=== PATIENT | male | born 1950 ===

== ENCOUNTER 2023-11-04 14:50 | Outpatient (RCR) | payer MEDICARE, SELFPAY | END 2023-11-04 23:59 | disposition home or self-care (01) | LOC: CRHB 14:50 | PROVIDERS: ATTENDING PHYSICIAN Internal Medicine Cardiovascular Disease; PRIMARYCARE PHYSICIAN Internal Medicine | DX: Z95.5 Presence of coronary angioplasty implant and graft (principal); I25.10 Atherosclerotic heart disease of native coronary artery without angina pectoris | CPT/HCPCS: G0422; G0423 ==

== ENCOUNTER 2023-11-18 13:59 | Emergency (ER) | payer MEDICARE, SELFPAY ==
[2023-11-18 14:15] VITALS: BP 118/77
--- NOTE | 2023-11-18 14:22 | ED.GENMED ---
History of Present Illness
General
Chief Complaint: Nose Bleed
Source: patient
Exam Limitations: none
Time Seen by Provider: 11/18/23 14:18
Nursing documentation reviewed up to this point in time: agreed with
Travel History
Have you had any contact with someone who has COVID-19?: No
Do you have any symptoms of coronavirus? Fever > 100 degrees, chills, cough, shortness of breath, sore throat, loss of taste or smell, muscle aches, or headache?: No
History of Present Illness
History of Present Illness:
This is a 73 y/o male with a hx of CAD, hyperlipidemia, presenting emergency department today with concerns of a nosebleed. Patient states that his nosebleed started at 11:30 AM today. Patient reports that it started on the left nostril and then
he started bleeding from the right nostril. Patient reports that he is on Eliquis currently because he recently had a coronary artery stenting procedure done. Patient denies any chest pain, shortness of breath, lightheadedness, syncopal episodes.
Currently, his bleeding has slowed. Patient denies any trauma to the nose, patient states that this bleed started after he stuck a finger into his nose. Patient denies any URI symptoms, any sinus congestion.
Review of Systems
Review of Systems
All Other Systems: ROS reviewed and negative except as documented in HPI and ROS
Phy Exam
Physical Exam
Physical Exam:
General: Patient is well appearing and in no acute distress; non-toxic
Skin: Warm and dry, no rashes or lesions
Head: Normocephalic, atraumatic
Eyes: Sclera non-icteric. EOMs intact.
Mouth: No blood seen in the posterior oral pharynx.
Nose: Nares patent bilaterally. No blood clots visualized, no active sites of bleeding visualized, dried blood seen in nares bilaterally. No septal hematoma.
Cardiac: Regular rate.
Peripheral Vascular: No lower extremity swelling
Pulm: Normal respiratory effort
Abdomen: No abdominal tenderness
Musculoskeletal: No tenderness to palpation of the nasal bridge or nasal cartilage.
Neuro: CN II-XII intact, no focal neurologic deficits.
Psychiatric: Appropriate mood and affect.
Course
Orders/Labs/Results
Orders:
Orders
11/18/23 14:54
Oxymetazoline HCl [Afrin Nasal [place]] 30 sprays .ROUTE .[facility]
11/18/23 20:00
Oxymetazoline HCl [Afrin Nasal [place]] See Dose Instructions NASAL BID
Vital Signs
Initial and Last Documented VS:
Initial Vital Signs
Temp Pulse Resp BP Pulse Ox
98.2 F 62 18 118/77 99
11/18/23 14:15 11/18/23 14:15 11/18/23 14:15 11/18/23 14:15 11/18/23 14:15
Last Documented Vital Signs
Temp Pulse Resp BP Pulse Ox
98.2 F 62 18 118/77 99
11/18/23 14:15 11/18/23 14:15 11/18/23 14:15 11/18/23 14:15 11/18/23 14:15
MDM/Problems Addressed
Differential Diagnosis Includes:
anterior epistaxis, posterior epistaxis, sinusitis, nasal foreign body
MDM/Problems Addressed:
nose bleed
Chronic conditions affecting care:
eliquis use, coronary artery disease, hyperlipidemia
Acute Exacerbation and/or Progression of Chronic Illness:
eliquis use, coronary artery disease, hyperlipidemia
*Pulse Oximetry
Patient hypoxic: no
*Critical Care Note
Total Time (30-74mins, 75-104mins- exclusive of procedures): Not Applicable
Data Reviewed
Review of Other/Old Records Reveals: Records (No previous ER visits in [facility] to review) and Discharge Summary (No discharge summaries [facility] to review)
Source: patient and records
Patient Management
Escalation/DeEscalation of care consider admission/obs:
This is a 73 y/o male with a hx of CAD, hyperlipidemia, presenting emergency department today with concerns of a nosebleed. Patient currently takes Eliquis due to recent cardiac procedure. Upon arrival to emergency department, patient's bleeding
had subsided. On exam, patient has no active bleeding, no clots in nasal cavity, no septal hematoma. Patient held pressure with the clamp while in the waiting room, and then once seen by us, Afrin was applied to each nostril bilaterally and he was
observed. After reassessment following observation, patient had no continued bleeding. Patient stable for discharge. This case was reviewed with my attending Dr. Hester who personally evaluated patient with me and is in agreement with plan.
ED Attending Note
-
Portions of this chart may have been created with voice recognition software.� Occasional wrong word or��sound alike� substitutions may have occurred due to the inherent limitations of voice recognition software.
Discharge Plan
Departure
Patient Disposition: Home (Routine Discharge)
Date of Disposition: 11/18/23
Time of Disposition: 16:16
Patient with high blood pressure during this ER visit?: No
Condition: Good
Discharge Problem:
Arterial nasal hemorrhage
Instructions: Nosebleeds (DC)
Referrals:
Jacky Garibay MD [Family Provider] -
Activity Restrictions/Additional Instructions:
Should your nosebleed return, please apply pressure once again. You can use the afrin and spray it on a cotton ball and place in the nose, than pinch. Please do not use Afrin for more than three days.
Please follow-up with your primary care provider.
Please return the emergency department should you experience uncontrolled bleeding, intractable vomiting, chest pain, shortness of breath, dizziness, lightheadedness, syncopal episodes.
Interventions
Interventions:
*Risk Screen - Suicide Last Done: 11/18/23 14:15
*General Assessment Last Done: 11/18/23 14:56
*Neglect/Abuse Screening Last Done: 11/18/23 14:56
*ED COVID-19 Vaccine History Last Done: 11/18/23 14:15
*Nursing Disposition Last Done: 11/18/23 16:34
ED-EENT Assessment Last Done: 11/18/23 14:56
Discharge Date and Time
Discharge Date/Time: 11/18/23 16:35
Print Language: [id number]
[2023-11-18] MEDS: AFRIN NASAL SPRAY 2 SPRAYS NASAL (14:55)
== END 2023-11-18 16:35 | disposition home or self-care (01) ==
LOC: EMR 13:59
PROVIDERS: EMERGENCY PHYSICIAN Emergency Medicine; FAMILY PHYSICIAN Internal Medicine
DX: R04.0 Epistaxis (principal); I25.10 Atherosclerotic heart disease of native coronary artery without angina pectoris; E78.00 Pure hypercholesterolemia, unspecified; Z79.01 Long term (current) use of anticoagulants; Z95.5 Presence of coronary angioplasty implant and graft
CPT/HCPCS: 99282

== ENCOUNTER 2023-12-11 15:03 | Outpatient (RCR) | payer MEDICARE, SELFPAY | END 2023-12-11 23:59 | disposition home or self-care (01) | LOC: CRHB 15:03 | PROVIDERS: ATTENDING PHYSICIAN Internal Medicine Cardiovascular Disease; PRIMARYCARE PHYSICIAN Internal Medicine | DX: Z95.5 Presence of coronary angioplasty implant and graft (principal); I25.10 Atherosclerotic heart disease of native coronary artery without angina pectoris | CPT/HCPCS: G0422; G0423 ==

== ENCOUNTER 2024-01-08 15:22 | Outpatient (RCR) | payer MEDICARE, SELFPAY | END 2024-01-08 23:59 | disposition home or self-care (01) | LOC: CRHB 15:22 | PROVIDERS: ATTENDING PHYSICIAN Internal Medicine Cardiovascular Disease; PRIMARYCARE PHYSICIAN Internal Medicine | DX: I25.10 Atherosclerotic heart disease of native coronary artery without angina pectoris (principal); Z95.5 Presence of coronary angioplasty implant and graft | CPT/HCPCS: G0422; G0423 ==

== ENCOUNTER 2024-02-01 14:00 | Outpatient (RCR) | payer MEDICARE, SELFPAY ==
[2024-01-28 09:51] LABS: HDL Cholesterol 51 mg/dl; LDL Cholesterol, Calculated 70 mg/dl; Total Cholesterol 133 mg/dl (50-199); Triglyceride 60 mg/dl (10-149); Very Low Density Lipoprotein 12 mg/dl (0-30)
== END 2024-02-01 23:59 | disposition home or self-care (01) ==
LOC: CRHB 14:00
PROVIDERS: ATTENDING PHYSICIAN Internal Medicine Cardiovascular Disease; PRIMARYCARE PHYSICIAN Internal Medicine
DX: I25.10 Atherosclerotic heart disease of native coronary artery without angina pectoris (principal); Z95.5 Presence of coronary angioplasty implant and graft; I25.2 Old myocardial infarction
CPT/HCPCS: 80061; G0422; G0423